=== PATIENT | male | born 1950 | race Caucasian/White ===

== ENCOUNTER → 2017-06-30 | Outpatient (CLI) | payer MEDICARE, OTHER | LOC: CARD 10:25 | PROVIDERS: ATTEND Internal Medicine Cardiovascular Disease | DX: I48.91 Unspecified atrial fibrillation (principal) | CPT/HCPCS: 93225; 93226 ==

== ENCOUNTER 2017-08-06 14:00 | Outpatient (CLI) | payer MEDICARE, OTHER | END 2017-08-06 16:24 | disposition home or self-care (01) | LOC: SLEEP 14:00 | PROVIDERS: ATTEND Nurse Practitioner Family | DX: G47.33 Obstructive sleep apnea (adult) (pediatric) (principal) ==

== ENCOUNTER 2018-08-26 15:21 | Outpatient (CLI) | payer MEDICARE, OTHER ==
[~2018-08-26] VITALS: Ht 188 cm; Wt 108.9 kg
[2018-08-26] MEDS ORDERED: FURO20TA4 PO (15:55)
[2018-08-26] MEDS ORDERED: METO-370 PO (15:55)
[2018-08-26] MEDS ORDERED: POTA10TA10 PO (15:55)
[2018-08-26] MEDS ORDERED: SITA100T12 PO (15:55)
[2018-08-26] MEDS ORDERED: LISI10TA2 PO (15:55)
[2018-08-26] MEDS ORDERED: RIVA20TA PO (15:55)
[2018-08-26] MEDS ORDERED: SIMV10TA3 PO (15:55)
[2018-08-26] MEDS ORDERED: METF-399 PO (15:55)
[2018-08-27] MEDS ORDERED: TAMS0.4C98 PO (13:21)
[2018-08-27] MEDS ORDERED: PHEN-640 PO (13:21)
[2018-08-27] MEDS ORDERED: CIPR-225 PO (13:21)
== END 2018-08-26 16:02 ==
LOC: PREOP 15:21
PROVIDERS: ATTEND Urology
DX: Z01.818 Encounter for other preprocedural examination (principal)

== ENCOUNTER 2018-08-27 10:46 | Day surgery (SDC) | payer MEDICARE, OTHER ==
[~2018-08-27] VITALS: Ht 188 cm; Wt 111.6 kg
[~2018-08-27 10:46] MED LIST: FURO20TA4 PO; LISI10TA2 PO; METF-399 PO; METO-370 PO; POTA10TA10 PO; RIVA20TA PO; SIMV10TA3 PO; SITA100T12 PO
[2018-08-27] MEDS ORDERED: LACTATED RINGERS 1,000 ML IV PRN (10:57)
[2018-08-27] MEDS ORDERED: cefTRIAXone FOR IV USE 1,000 MG in WATER (STERILE) FOR INJECTION 10 ML IV ONE (11:00)
[2018-08-27 11:31] LABS: PROTHROMBIN TIME PATIENT 13.4 SEC (12.2-14.7)
[2018-08-27 11:36] VITALS: BP 167/92
--- NOTE | 2018-08-27 11:37 | Diagnostic Imaging Report ---
Indication: Preop for left distal ureteral stone. Time of exam 11:15 AM Single view of the abdomen does show rounded calcific density in the right abdomen, perhaps gallstone. This does however overlie the right renal shadow. There is a calcific density in the left pelvis medially located which may represent distal ureteric calculus versus 2 adjacent calculi. In aggregate this measures approximately 10 mm. No other urinary tract calculi are seen. The bowel gas pattern is unremarkable. Moderate stool in right colon is seen. Impression: 1. Findings suspicious for distal left ureteric calculus or 2 adjacent calculi. 2. Rounded calcification in the right abdomen approximately 3 cm in size. This may represent a gallstone or less likely a renal calcification. Dictated by: Dictated on workstation # [id number]
[2018-08-27] MEDS ORDERED: MIDAZOLAM 2 MG/2 ML (VERSED) VIAL ONE (11:41)
[2018-08-27] MEDS ORDERED: proPOfol 200 MG/20 ML (DIPRIVAN) VIAL IV ONE (11:41)
[2018-08-27] MEDS ORDERED: ONDANSETRON 4 MG/2 ML (SDV) Z0FRAN ONE (11:41)
[2018-08-27] MEDS ORDERED: SEVOFLURANE (ULTANE) 15 ML INHAL SOLN ONE (11:41)
[2018-08-27] MEDS ORDERED: LIDOCAINE PF 2% 5 ML (XYLOCAINE) VIAL ONE (11:41)
[2018-08-27] MEDS ORDERED: fentaNYL INJECTION 100 MCG/2 ML AMP ONE (11:41)
--- NOTE | 2018-08-27 11:42 | Progress Note-Pre Operative ---
Pre-Operative Progress Note H&P Reviewed The H&P was reviewed, patient examined and no changes noted. Date Seen by Provider: Aug 27, 2018 Time Seen by Provider: 11:42 Date H&P Reviewed: Aug 27, 2018 Time H&P Reviewed: 11:42 Pre-Operative Diagnosis: LT DISTAL URETERAL STONE BILLY ROMAN MD Aug 27, 2018 11:42
--- NOTE | 2018-08-27 11:43 | Progress Note-Post Operative ---
Post-Operative Progess Note Surgeon (s)/Sharepoint Architect (s) Surgeon BILLY ROMAN MD Sharepoint Architect: NONE Pre-Operative Diagnosis LT DISTAL URETERAL STONE Post-Operative Diagnosis SAME Procedure & Operative Findings Date of Procedure 08/27/18 Procedure Performed/Findings LT URETEROSCOPY WITH STONE LITHOTRIPSY Anesthesia Type GENERAL Estimated Blood Loss Estimated blood loss (mL): NONE Specimens/Packing Specimens Removed NONE Packing: NONE BILLY ROMAN MD Aug 27, 2018 11:43
[2018-08-27] MEDS ORDERED: NEOSTIGMINE 1 MG/ML 5 ML SYRINGE ONE (12:15)
[2018-08-27] MEDS ORDERED: GLYCOPYRROLATE 0.2 MG/ML (ROBINUL) 2 ML VIAL ONE (12:15)
[2018-08-27] MEDS ORDERED: ROCURONIUM 10 MG/ML 5 ML SYRINGE IV ONE (12:20)
[2018-08-27] MEDS ORDERED: LACTATED RINGERS 1,000 ML IV ONE (12:21)
--- NOTE | 2018-08-27 12:37 | Discharge Inst-Urology ---
Discharge Inst-Urology Discharge Medications New, Converted, or Re-newed RX: RX on Chart Patient Instructions/Follow Up Plan Please make appointment to been seen in office in 2 weeks. In 48 hours, if no bleeding, may resume Xarelto Increase oral fluids. Diet and Activity as tolerated. If questions or concerns contact your physician Or seek help at emergency department. BILLY ROMAN MD Aug 27, 2018 12:36
[2018-08-27] MEDS ORDERED: ONDANSETRON 4 MG/2 ML (SDV) Z0FRAN IVP PRN (12:45)
[2018-08-27] MEDS ORDERED: fentaNYL INJECTION 100 MCG/2 ML AMP IVP ONE (12:45)
--- NOTE | 2018-08-27 12:53 | Anesthesia-General Post-Op ---
General Patient Condition Mental Status/LOC: Same as Preop Cardiovascular: Satisfactory Nausea/Vomiting: Absent Respiratory: Satisfactory Pain: Controlled Complications: Absent Post Op Complications Complications None Follow Up Care/Instructions Patient Instructions None needed. Anesthesia/Patient Condition Patient Condition Patient is doing well, no complaints, stable vital signs, no apparent adverse anesthesia problems. No complications reported per nursing. ROSMERY STEWART CRNA Aug 27, 2018 12:53
[2018-08-27 13:10] VITALS: BP 143/83
[2018-08-27] MEDS ORDERED: TAMS0.4C98 PO (13:21)
[2018-08-27] MEDS ORDERED: PHEN-640 PO (13:21)
[2018-08-27] MEDS ORDERED: CIPR-225 PO (13:21)
[2018-08-27 13:39] VITALS: BP 146/88
[2018-08-27 14:10] VITALS: BP 148/83
[2018-08-27 14:21] VITALS: BP 148/83
--- NOTE | 2018-09-07 09:26 | OPERATIVE REPORT ---
DATE OF SERVICE: 08/27/2018 PREOPERATIVE DIAGNOSIS: Left distal ureteral stone. POSTOPERATIVE DIAGNOSIS: Left distal ureteral stone. OPERATION: Left ureteroscopy with stone lithotripsy. SURGEON: Remigio Roman MD. ANESTHESIA: General. COMPLICATIONS: None. DESCRIPTION OF PROCEDURE: Under satisfactory general anesthesia and the patient in lithotomy position, genitalia were prepped and draped in the usual sterile fashion. Cystoscope was introduced and under vision, the left ureteral orifice and intramural portion was dilated to accommodate a 6.9 Frisian semi-rigid ureteroscope. We went up to the stone, visualized went ahead and broke it up completely with the lithoclast. The fragments were flowing down the bladder. We went more proximal to the stone. There was no further stone or fragment. The ureteroscope was removed. The patient tolerated the procedure and anesthesia well and was sent to the recovery room in stable condition. Job ID: [id number] DocumentID: [id number] Dictated Date: 09/07/2018 08:46:48 Examination Proctor Date: 09/07/2018 09:25:50 Dictated By: REMIGIO ROMAN MD
== END 2018-08-27 14:20 | disposition home or self-care (01) ==
LOC: SDC 10:46
PROVIDERS: ATTEND Urology
DX: N20.1 Calculus of ureter (principal); I48.91 Unspecified atrial fibrillation; I10 Essential (primary) hypertension; E11.9 Type 2 diabetes mellitus without complications; G47.33 Obstructive sleep apnea (adult) (pediatric); Z79.01 Long term (current) use of anticoagulants; Z79.84 Long term (current) use of oral hypoglycemic drugs; Z79.899 Other long term (current) drug therapy
CPT/HCPCS: 36415; 74018; 82962; 85610; 87081